=== PATIENT | female | born 1995 | race Hispanic/Latino ===

== ENCOUNTER 2022-06-06 13:18 | Emergency (ER) | payer SELFPAY ==
[2022-06-06] MEDS ORDERED: DERMABOND SKIN ADHESIVE TOP ONE (14:01)
--- NOTE | 2022-06-06 14:59 | ER ---
Nurse's Notes [facility] Name: Vandana Roy Age: 26 yrs Sex: Female : 1995 Arrival Date: 06/06/2022 Time: 13:20 Bed 10 Private MD: Diagnosis: LACERATION WITHOUT FOREIGN BODY OF RIGHT LESSER TOE WITHOUT DAMAGE TO NAIL Presentation: 06/06 13:23 Chief complaint: Patient states: cut her toe getting into her chair, dad has a picture ko1 on his phone. Bleeding controlled at this time. It happened about noon. Coronavirus screen: At this time, the client does not indicate any symptoms associated with coronavirus-19. Ebola Screen: No symptoms or risks identified at this time. Complicating Factors:. Initial Sepsis Screen: Does the patient meet any 2 criteria? No. Patient's initial sepsis screen is negative. Does the patient have a suspected source of infection? No. Patient's initial sepsis screen is negative. Risk Assessment: Do you want to hurt yourself or someone else? Patient reports no desire to harm self or others. Onset of symptoms was June 06, 2022 at 12:00. Care prior to arrival: Bleeding of injury controlled. Injury dressed. 13:23 Method Of Arrival: Wheelchair ko1 13:23 Acuity: RYANNE 3 ko1 Triage Assessment: 13:25 General: Appears in no apparent distress. comfortable, Behavior is calm, cooperative, ko1 appropriate for age. Pain: Denies pain. Injury Description: Laceration sustained to right 3rd toe. 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 Last tetanus immunization: unknown, Flu vaccine is up to date. - Social history:: Smoking status: Patient denies any tobacco usage or history of. Screenin:06 [facility] ED Fall Risk Assessment (Adult) Impaired Gait Yes (1 pt) Mobility Assist ll1 Device Used Yes (1 pt) Score/Fall Risk Level 0 - 2 = Low Risk Oriented to surroundings, Maintained a safe environment, Educated pt \T\ family on fall prevention, incl call for assistance when getting out of bed, Hourly rounding (assess needs \T\ fall precautionary measures) done. Abuse screen: Denies threats or abuse. Nutritional screening: No deficits noted. Tuberculosis screening: No symptoms or risk factors identified. Assessment: 14:04 Reassessment: No changes from previously documented assessment. Patient and/or family ll1 updated on plan of care and expected duration. Pain level reassessed. Patient is alert, oriented x 3, equal unlabored respirations, skin warm/dry/pink. 14:04 General: Appears uncomfortable. Derm: laceration posterior 3rd toe. No active bleeding. ll1 PMS intact. Musculoskeletal: Circulation, motion, and sensation intact. Capillary refill < 3 seconds. 14:20 Reassessment: No changes from previously documented assessment. toe dermabonded by ll1 Shannan Hernandez NP. 15:14 Reassessment: No changes from previously documented assessment. Patient and/or family ll1 updated on plan of care and expected duration. Pain level reassessed. refused post op shoe. Eva Hernandez NP informed. 15:15 Injury Description: Laceration is clean, 0.5 to 2.5 cm long. ll1 Vital Signs: 13:25 BP 113 / 77; Pulse 108; Resp 18; Temp 97.9; Pulse Ox 99% ; Weight 104.33 kg; Height 5 ko1 ft. 4 in. (162.56 cm); 13:25 Body Mass Index 39.48 (104.33 kg, 162.56 cm) ko1 ED Course: 13:20 Patient arrived in ED. mr 13:25 Triage completed. ko1 13:25 Arm band placed on right wrist. Patient placed in waiting room, Patient notified of ko1 wait time. 13:27 Shannan Hernandez FNP-C is PHCP. snw 13:27 Sai Higgins MD is Attending Physician. snw 13:33 Geoff Coronel, JACKY is Primary Nurse. ll1 14:05 Wound care: to laceration located on plantar aspect of right third toe was cleaned with ll1 Hibiclens, Patient tolerated well. 14:06 Patient has correct armband on for positive identification. Bed in low position. Call ll1 light in reach. Cardiac monitoring not applicable on this patient. 15:15 No provider procedures requiring assistance completed. Patient did not have IV access ll1 during this emergency room visit. Administered Medications: No medications were administered Medication: 14:06 VIS not applicable for this client. ll1 Outcome: 14:59 Discharge ordered by . lindy 15:15 Discharged to home via wheelchair. ll1 15:15 Condition: stable 15:15 Discharge instructions given to patient, family, Instructed on discharge instructions, follow up and referral plans. wound care, Demonstrated understanding of instructions, follow-up care, medications, wound care, Prescriptions given X 1. 15:15 Patient left the ED. ll1 Signatures: Shannan Hernandez, ELEVATOR CONSTRUCTOR-C ELEVATOR CONSTRUCTOR-Sarahw Ny Wu mr Geoff Coronel, RN RN ll1 Angela Moya, JACKY RN ko1
--- NOTE | 2022-06-06 14:59 | EDPHYS ---
Physician Documentation [facility] Name: Vandana Roy Age: 26 yrs Sex: Female : 1995 Arrival Date: 06/06/2022 Time: 13:20 Bed 10 Private MD: ED Physician Sai Higgins HPI: 06/06 13:52 This 26 yrs old Female presents to ER via Wheelchair with complaints of snw Laceration To Foot. 13:52 The patient has a laceration related to: transferring from chair occurred at home, and snw transfers only, not ambulatory. Onset: The symptoms/episode began/occurred suddenly, this morning. The patient has not experienced similar symptoms in the past. It is unknown whether or not the patient has recently seen a physician. 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 Last tetanus immunization: unknown, Flu vaccine is up to date. - Social history:: Smoking status: Patient denies any tobacco usage or history of. ROS: 13:51 Constitutional: Negative for fever, chills, and weight loss, Eyes: Negative for injury, snw pain, redness, and discharge, ENT: Negative for injury, pain, and discharge, Neck: Negative for injury, pain, and swelling, Cardiovascular: Negative for chest pain, palpitations, and edema, Respiratory: Negative for shortness of breath, cough, wheezing, and pleuritic chest pain, Abdomen/GI: Negative for abdominal pain, nausea, vomiting, diarrhea, and constipation, Back: Negative for injury and pain, : Negative for injury, bleeding, discharge, and swelling, MS/Extremity: Negative for injury and deformity, Neuro: Negative for headache, weakness, numbness, tingling, and seizure, Psych: Negative for depression, anxiety, suicide ideation, homicidal ideation, and hallucinations. 13:51 Skin: Positive for laceration(s), of the plantar aspect of right third toe. Exam: 13:49 Constitutional: This is a well developed, well nourished patient who is awake, alert, snw and in no acute distress. Head/Face: Normocephalic, atraumatic. Eyes: Pupils equal round and reactive to light, extra-ocular motions intact. Lids and lashes normal. Conjunctiva and sclera are non-icteric and not injected. Cornea within normal limits. Periorbital areas with no swelling, redness, or edema. ENT: Nares patent. No nasal discharge, no septal abnormalities noted. Tympanic membranes are normal and external auditory canals are clear. Oropharynx with no redness, swelling, or masses, exudates, or evidence of obstruction, uvula midline. Mucous membranes moist. Neck: Trachea midline, no thyromegaly or masses palpated, and no cervical lymphadenopathy. Supple, full range of motion without nuchal rigidity, or vertebral point tenderness. No Meningismus. Chest/axilla: Normal chest wall appearance and motion. Nontender with no deformity. No lesions are appreciated. Cardiovascular: Regular rate and rhythm with a normal S1 and S2. No gallops, murmurs, or rubs. Normal PMI, no JVD. No pulse deficits. Respiratory: Lungs have equal breath sounds bilaterally, clear to auscultation and percussion. No rales, rhonchi or wheezes noted. No increased work of breathing, no retractions or nasal flaring. Abdomen/GI: Soft, non-tender, with normal bowel sounds. No distension or tympany. No guarding or rebound. No evidence of tenderness throughout. Back: No spinal tenderness. No costovertebral tenderness. Full range of motion. MS/ Extremity: Pulses equal, no cyanosis. Neurovascular intact. Full, normal range of motion. Neuro: Awake and alert, GCS 15, oriented to person, place, time, and situation. pt in w/c and performs transfers only 2nd to spina bifida Psych: Awake, alert, with orientation to person, place and time. Behavior, mood, and affect are within normal limits. 13:49 Skin: Appearance: normal except for affected area, injury, laceration(s), the wound is approximately .5 cm(s), with a depth of .5 cm(s), of the plantar aspect of right third toe, under toe crease, laceration, will tack together and use splinting to keep from . Vital Signs: 13:25 BP 113 / 77; Pulse 108; Resp 18; Temp 97.9; Pulse Ox 99% ; Weight 104.33 kg; Height 5 ko1 ft. 4 in. (162.56 cm); 13:25 Body Mass Index 39.48 (104.33 kg, 162.56 cm) ko1 MDM: 13:36 Patient medically screened. snw 14:56 Differential diagnosis: superficial laceration, vascular injury. Data reviewed: vital snw signs, nurses notes. Independent interpretation of the following test(s) in the Emergency Department X-Ray: My interpretation is right foot, third medial phalanx with tiny break in the cortex, may be norm but will tx as acute fx. 06/06 14:20 Order name: Foot Right 3 View XRAY snw 06/06 15:03 Order name: RAD; Complete Time: 15:43 EDMS 06/06 13:45 Order name: Wound Care: cleanse with hibiclens, dry very well; Complete Time: 14:31 snw 06/06 13:45 Order name: Dermabond; Complete Time: 14:32 snw Administered Medications: No medications were administered Disposition Summary: 06/06/22 14:59 Discharge Ordered Location: Home snw Condition: Stable snw Diagnosis - LACERATION WITHOUT FOREIGN BODY OF RIGHT LESSER TOE WITHOUT DAMAGE TO NAIL snw Followup: snw - With: Emergency Department - When: As needed - Reason: Worsening of condition Followup: snw - With: Private Physician - When: 1 week - Reason: Recheck today's complaints, Continuance of care, Re-evaluation by your physician Discharge Instructions: - Discharge Summary Sheet snw - Tissue Adhesive Wound Care snw - Nonsutured Laceration Care snw - Walking Boot, Adult snw Forms: - Medication Reconciliation Form snw - Thank You Letter snw - Antibiotic Education snw - Prescription Opioid Use snw Prescriptions: - cefdinir 300 mg Oral capsule - take 2 capsule by ORAL route once daily for 10 days; 20 capsule; Refills: 0, snw Product Selection Permitted Signatures: Dispatcher [employer] [facility] Shannan Hernandez FNP-C PROFILE GRINDER TECHNICIAN-Sarahw Angela Moya RN RN ko1 Corrections: (The following items were deleted from the chart) 13:52 13:49 Constitutional: This is a well developed, well nourished patient who is awake, snw alert, and in no acute distress. Head/Face: Normocephalic, atraumatic. Eyes: Pupils equal round and reactive to light, extra-ocular motions intact. Lids and lashes normal. Conjunctiva and sclera are non-icteric and not injected. Cornea within normal limits. Periorbital areas with no swelling, redness, or edema. ENT: Nares patent. No nasal discharge, no septal abnormalities noted. Tympanic membranes are normal and external auditory canals are clear. Oropharynx with no redness, swelling, or masses, exudates, or evidence of obstruction, uvula midline. Mucous membranes moist. Neck: Trachea midline, no thyromegaly or masses palpated, and no cervical lymphadenopathy. Supple, full range of motion without nuchal rigidity, or vertebral point tenderness. No Meningismus. Chest/axilla: Normal chest wall appearance and motion. Nontender with no deformity. No lesions are appreciated. Cardiovascular: Regular rate and rhythm with a normal S1 and S2. No gallops, murmurs, or rubs. Normal PMI, no JVD. No pulse deficits. Respiratory: Lungs have equal breath sounds bilaterally, clear to auscultation and percussion. No rales, rhonchi or wheezes noted. No increased work of breathing, no retractions or nasal flaring. Abdomen/GI: Soft, non-tender, with normal bowel sounds. No distension or tympany. No guarding or rebound. No evidence of tenderness throughout. Back: No spinal tenderness. No costovertebral tenderness. Full range of motion. MS/ Extremity: Pulses equal, no cyanosis. Neurovascular intact. Full, normal range of motion. Neuro: Awake and alert, GCS 15, oriented to person, place, time, and situation. Cranial nerves II-XII grossly intact. Motor strength 5/5 in all extremities. Sensory grossly intact. Cerebellar exam normal. Normal gait. Psych: Awake, alert, with orientation to person, place and time. Behavior, mood, and affect are within normal limits. snw 15:09 13:45 Ortho shoe ordered. snw ll1
--- NOTE | 2022-06-06 15:02 | RAD REPORT ---
EXAM DESCRIPTION: RAD - Foot Right 3 View - 06/06/2022 2:55 pm CLINICAL HISTORY: laceration Pain and swelling COMPARISON: No comparisons FINDINGS: Significant soft tissue swelling is seen forefoot and midfoot. No radiopaque foreign body seen. No soft tissue gas.
[2022-06-06 15:21] VITALS: BP 113/77; TEMP 97.9; O2SAT 99
== END 2022-06-06 15:15 | disposition home or self-care (01) ==
LOC: ER 13:18
DX: S91.114A Laceration without foreign body of right lesser toe(s) without damage to nail, initial encounter (principal); Z88.2 Allergy status to sulfonamides; Z88.5 Allergy status to narcotic agent
CPT/HCPCS: 99283